=== PATIENT | male | born 1995 | race Caucasian/White ===

== ENCOUNTER 2021-01-13 19:56 | Emergency (ER) | payer SELFPAY ==
[2021-01-13 20:04] VITALS: BP 133/98; PULSE 107; RESP 18; TEMP 36; O2SAT 100
--- NOTE | 2021-01-13 20:44 | ED.GENADULT ---
HPI - General Adult General Chief complaint: Dental/Oral Stated complaint: Tooth pain, facial swelling Time Seen by Provider: 01/13/21 19:59 Source: patient Mode of arrival: ambulatory Limitations: no limitations History of Present Illness HPI narrative: Patient presents for evaluation of left upper dental pain for the last 3 days. States the pain is 8 out of 10 in severity, without descriptive quality. Pain radiates into the left side of his face. No fever, chills, nausea, vomiting, trismus, problems handling his secretions. He is not diabetic. He has taken low-dose Advil with some improvement in symptoms or after. He smokes 1/2 ppd. No additional complaints or concerns. Related Data Allergies Allergy/AdvReac Type Severity Reaction Status Date / Time No Known Allergies Allergy Verified 01/13/21 20:07 Review of Systems Review of Systems: Narrative: CONSTITUTIONAL: Denies fever, chills, or sweats. EYES: Denies visual changes, redness, or discharge. ENT: Reports left upper dental pain with radiation into the left side of his face CARDIOVASCULAR: Denies chest pain, palpitations, or edema. RESPIRATORY: Denies cough or dyspnea. GASTROINTESTINAL: Denies abdominal pain, nausea, vomiting, or diarrhea. GENITOURINARY: Denies dysuria or hematuria. SKIN: Denies rash or itching. MUSCULOSKELETAL: Denies back pain, joint pain, or myalgia. NEUROLOGIC: Denies headache, numbness, dizziness, or weakness. PSYCHIATRIC: Denies anxiety or depression. PMFSH Past Medical History Medical History Tobacco use Surgical History Surgical History No pertinent past surgical history Family History Family History (Updated 01/13/21 @ 20:47 by Umesh Haines, [employer], ) Mother No pertinent past medical history Social History Social History (Updated 01/13/21 @ 20:47 by Umesh Haines, [facility], ) Smoking status: Current every day smoker Tobacco type: cigarettes Additional smoking assessment comments: 1/2 ppd Alcohol intake: never Substance use: never Living arrangements: with family Gender identity (if verbalized by the patient): Male Spiritual care concerns: No Exam Narrative: Exam Narrative: GENERAL: Well-appearing, well-nourished, and in no acute distress. HEAD: Normocephalic, atraumatic. EYES: PERRLA and EOMI. ENT: Nares clear, no rhinorrhea or epistaxis. Multiple fractured teeth, eroded down to the gumline. Multiple teeth are necrotic. There is tenderness in the gumline superior to tooth #9-11. There is no palpable abscess. There is some left sided facial swelling. Mucous membranes moist. Oropharynx without tonsillar hypertrophy exudate or other lesions. Bilateral TMs pearly bae nonbulging NECK: Supple. No adenopathy or masses. No carotid bruits or JVD CHEST: Clear to auscultation. No respiratory distress. No wheezes rales or rhonchi HEART: Regular rate and rhythm. No murmur heard. Normal peripheral pulses. ABDOMEN: Soft, nontender, nondistended, normal active bowel sounds. EXTREMITIES: Normal range of motion. No edema. SKIN: Warm, dry, no rash. NEURO: No focal deficits. Alert and oriented x3. PSYCH: Normal mood and affect. Course Course Emergency Course: This is a 25-year-old male who presented with 3-day history of dental pain with left-sided facial swelling and pain. There is no visible or palpable abscess on exam. Will start PCN and tylenol with codeine. He may continue with NSAIDs. He should follow up with dentist this coming week and return for any worsening symptoms. Vital Signs Vital signs: Vital Signs Temperature 36.0 C L 01/13/21 20:04 Pulse Rate 107 H 01/13/21 20:04 Respiratory Rate 18 01/13/21 20:04 Blood Pressure 133/98 H 01/13/21 20:04 Pulse Oximetry 100 01/13/21 20:04 Temperature 36.0 C L 01/13/21 20:04 Pulse Rate 107 H 01/13/21 20:04 Respiratory Rate 18 01/13/21 20:04 Blood Pressure 133/98 H 04
== END 2021-01-13 21:08 | disposition home or self-care (01) ==
PROVIDERS: Emergency Provider Nurse Practitioner
DX: K02.9 Dental caries, unspecified (principal); F17.210 Nicotine dependence, cigarettes, uncomplicated
CPT/HCPCS: 99283

== ENCOUNTER 2024-06-07 10:51 | Emergency (ER) | payer SELFPAY ==
--- NOTE | ~2024-06-07 | CT_ITS ---
EXAMINATION: CT abdomen pelvis wo con DATE: 06/07/2024 12:22 INDICATION: Hematuria TECHNIQUE: Computed tomography (CT) of the abdomen and pelvis was performed without intravenous contr ast. Automated exposure control and iterative reconstruction technique were employed. The dose-length product was 218.48 mGy-cm. COMPARISON: None FINDINGS: Lung bases are clear. Heart size normal. No pericardial or pleural effusion. Small region of focal he patic steatosis along the ligamentum teres. Liver, gallbladder, spleen, pancreas and bilateral adrena l glands are normal. Kidneys and ureters are normal with no urolithiasis, hydroureteronephrosis or pe rinephric/ureteral stranding. Partially decompressed bladder is unremarkable. Bowels including the ap pendix are normal. No free intraperitoneal gas or fluid. No pathologically enlarged abdominal or pelv ic lymphadenopathy. Mild thoracic and lumbar spondylosis. IMPRESSION: 1. No urolithiasis or acute intra-abdominal/pelvic process. Reviewed, dictated and finalized at location B.
[2024-06-07 11:06] VITALS: BP 140/82; PULSE 75; RESP 18; TEMP 36.4; O2SAT 100
[2024-06-07 11:31] LABS: Basophils Absolute Auto 0.1 K/mm3 (0.0-0.1); Basophils Percent Auto 0.6 % (0.2-1.2); Eosinophils Absolute Auto 0.1 K/mm3 (0-0.3); Eosinophils Percent Auto 1.3 % (0-4.4); Hematocrit 46.3 % (42.0-52.0); Hemoglobin 16.7 g/dL (14.0-18.0); Immature Granulocyte Absolute 0.04 K/mm3 (0.00-0.031); Immature Granulocyte Percent A 0.4 % (0-0.5); Lymphocytes Absolute Auto 2.25 K/mm3 (0.9-3.2); Lymphocytes Percent Auto 22.5 % (18.3-44.2); Mean Corpuscular HGB Conc 36.1 g/dl (32-36); Mean Corpuscular Hemoglobin 31.6 pg (26-34); Mean Corpuscular Volume 87.7 fl (80-100); Mean Platelet Volume 10.9 fl (7.4-10.4); Monocytes Absolute Auto 0.5 K/mm3 (0.1-0.6); Monocytes Percent Auto 5.2 % (2.6-8.5); Platelet Count Result 225 k/mm3 (150-375); Red Blood Count 5.28 M/mm3 (4.6-6.20); Red Cell Distribution Width 11.7 % (11.5-14.5)
[2024-06-07 11:35] LABS: Add Urine Microscopic? YES; Appearance Urine Clear (Clear); Bacteria Urine None Seen /hpf; Bilirubin Urine 1+ (Negative); Blood Urine 2+ (Negative); Color Urine Dark Yellow (Yellow); Glucose Urine UA Negative (Negative); Ketones Urine 3+ mg/dL (Negative); Leukocyte Esterase Ur Trace LEU/UL (Negative); Nitrate Urine Negative (Negative); Non Pathogenic Casts 0-2; Protein Urine 2+ mg/dL (Negative); RBC Urine 21-50 /hpf (0-2); Specific Grav Ur 1.031 (1.001-1.035); Squamous Epithelial Cell Urine None Seen /hpf (Few); WBC Urine 0-5 /hpf (0-3); pH Urine 6.5 (5.0-9.0)
[2024-06-07 12:01] LABS: Alanine Aminotransferase 20 U/L (6-50); Albumin Level 4.2 g/dL (3.5-5.1); Alkaline Phosphatase 76 U/L (38-126); Anion Gap 6 mmol/L (4-12); Aspartate Amino Transferase 25 U/L (17-59); Bilirubin,Total 0.6 mg/dL (0.2-1.3); Blood Urea Nitrogen 7 mg/dL (9-20); Calcium 9.5 mg/dL (8.4-10.2); Carbon Dioxide 27 mmol/L (22-30); Chloride 98 mmol/L (98-107); Estimated CRCL calculation 111 ml/min; Estimated Glomerular Filt Rate > 60; Glucose 110 mg/dL (65-110); Potassium 2.9 mmol/L (3.4-5.0); Sodium 131 mmol/L (137-145)
--- NOTE | 2024-06-07 12:57 | ED.BACK ---
HPI - Back Pain/Injury General Chief Complaint: Back Pain/Injury Stated Complaint: KIDNEY PAIN Time Seen by Provider: 06/07/24 11:18 History of Present Illness HPI Narrative: 28-year-old male presenting to the emergency department for evaluation for right flank pain that started on Friday and has been persistent. Patient denies any pain with urination. Patient states that his current pain is a 1/10. Patient declined any medications for pain control. Patient denies any prior history of UTI or kidney stones. Related Data Allergies Allergy/AdvReac Type Severity Reaction Status Date / Time No Known Allergies Allergy Verified 06/07/24 11:18 Review of Systems Review of Systems: All systems reviewed & are unremarkable except as noted in HPI and below PMFSH Past Medical History Medical History Tobacco use Surgical History Surgical History No pertinent past surgical history Family History Family History (Updated 01/13/21 @ 20:47 by HERRERA Fernando, ) Mother No pertinent past medical history Social History Social History (Updated 01/13/21 @ 20:47 by Umesh Haines, HERRERA, ) Smoking status: Current every day smoker Tobacco type: cigarettes Additional smoking assessment comments: 1/2 ppd Alcohol intake: never Substance use: never Living arrangements: with family Gender identity (if verbalized by the patient): Male Spiritual care concerns: No Exam Narrative: APPEARANCE: Well appearing, no pain, no distress, well-nourished. HEAD: normocephalic, atraumatic. EYES: PERRLA/EOMI, conjunctivae clear. NOSE: Normal no drainage EARS:TMS clear with good light reflex. THROAT: Pharynx clear, no exudate. NECK: Supple. No adenopathy, no masses. RESPIRATORY: Airway patent, respirations nonlabored. Clear to auscultation bilaterally, no rales, rhonchi, wheezing. CARDIOVASCULAR: Regular rate and rhythm without murmurs rubs or gallops. ABDOMINAL: Soft, nontender, nondistended, normal bowel sounds MUSCULOSKELETAL: Moves all extremities. Strength/ROM intact, No edema, No calf tenderness. NEURO: Alert. Cranial nerves II through XII intact. Grossly intact SKIN: Warm, dry. Normal Color Course Course Emergency Course: Patient was positive for hematuria but had negative imaging. Patient was encouraged of close follow-up with Urology Vital Signs Vital signs: Vital Signs Temperature 97.5 F L 06/07/24 11:06 Pulse Rate 75 06/07/24 11:06 Respiratory Rate 18 06/07/24 11:06 Blood Pressure 140/82 06/07/24 11:06 Pulse Oximetry 100 06/07/24 11:06 Oxygen Delivery Room Air 06/07/24 11:06 Temperature 98.0 F 06/07/24 13:17 Pulse Rate 62 06/07/24 13:17 Respiratory Rate 16 06/07/24 13:17 Blood Pressure 134/86 06/07/24 13:17 Pulse Oximetry 62 L 06/07/24 13:17 Oxygen Delivery Room Air 06/07/24 11:06 MDM - Back Pain/Injury MDM Narrative Medical decision making narrative: 28-year-old male present to the ED for evaluation for right flank pain. Patient is afebrile no leukocytosis mid hemoglobin 16.7. No significant electrolyte abnormalities. UA does have positive blood but no white blood cells no bacteria and nitrate negative. CT scan showed no evidence of ureteral calculi. Patient declined any medications for pain control. Patient was encouraged of close follow-up with Urology for further evaluation of his hematuria. Differential Diagnosis Differential diagnosis: Likely lumbar radiculopathy, strain of lumbar region, renal colic and pyelonephritis Lab Data Attestation: I reviewed the patient's lab results. 06/07/24 11:25 06/07/24 11:25 Labs: Lab Results 06/07/24 Range/Units 11:25 WBC 10.0 (4.5-10.0) K/mm3 RBC 5.28 (4.6-6.20) M/mm3 Hgb 16.7 (14.0-18.0) g/dL Hct 46.3 (42.0-52.0) % MCV 87.7 (80-100) fl MCH 31.6 (26-34) pg MCHC 36.1 H (32-36)
[2024-06-07 13:17] VITALS: BP 134/86; PULSE 62; RESP 16; TEMP 36.7; O2SAT 62
== END 2024-06-07 13:18 | disposition home or self-care (01) ==
PROVIDERS: Emergency Provider Emergency Medicine
DX: R31.9 Hematuria, unspecified (principal); F17.210 Nicotine dependence, cigarettes, uncomplicated
CPT/HCPCS: 36415; 74176; 80053; 81001; 85025; 99284

== ENCOUNTER 2024-06-16 05:50 | Emergency (ER) | payer SELFPAY ==
--- NOTE | ~2024-06-16 | US_ITS ---
US abdomen limited INDICATION: Abdomen pain PROCEDURE: Realtime right upper abdominal ultrasound. COMPARISON: No prior studies for comparison. FINDINGS: The pancreas is normal without focal mass or pancreatic ductal dilation. Liver echotexture is normal without focal mass or intrahepatic biliary dilatation. There is normal directional flow i n the portal vein. The gallbladder is normal without stones, gallbladder wall thickening or pericholecystic fluid. Comm on bile duct measures 5 mm. No sonographic Egan's sign. IMPRESSION: 1: Normal limited abdominal ultrasound. Reviewed, dictated and finalized at location B.
--- NOTE | ~2024-06-16 | CT_ITS ---
Non-contrast CT scan of the Abdomen and Pelvis Clinical indication: Right flank pain Technique: 2.5 mm axial scans were obtained through the abdomen and pelvis without intravenous or or al contrast. Dose reduction technique was used on this scan by utilizing automated exposure control a nd iterative reconstruction technique. The dose-length product (DLP) was 213.08 mGy-cm. COMPARISON: 06/07/2024 Findings: Images through the lung bases reveal no abnormalities. There is no evidence of renal or ureteral calculi. The kidneys and the ureters are nondilated. The liver, spleen, pancreas, gallbladder, and adrenals appear normal. There is no aortic aneurysm. There is no evidence of bowel obstruction. Images through the pelvis were performed. There is no evidence of ascites or lymphadenopathy. Urinary bladder unremarkable. No pelvic mass seen. Impression: Unremarkable exam. Reviewed, dictated and finalized at [facility]. Impression: Unremarkable exam.
[2024-06-16 05:58] VITALS: BP 124/80; PULSE 68; RESP 14; TEMP 36.7; O2SAT 100
[2024-06-16 06:26] LABS: Basophils Absolute Auto 0.1 K/mm3 (0.0-0.1); Basophils Percent Auto 0.5 % (0.2-1.2); Eosinophils Absolute Auto 0.1 K/mm3 (0-0.3); Eosinophils Percent Auto 0.6 % (0-4.4); Hematocrit 41.6 % (42.0-52.0); Hemoglobin 14.6 g/dL (14.0-18.0); Immature Granulocyte Absolute 0.05 K/mm3 (0.00-0.031); Immature Granulocyte Percent A 0.4 % (0-0.5); Lymphocytes Absolute Auto 2.18 K/mm3 (0.9-3.2); Lymphocytes Percent Auto 17.2 % (18.3-44.2); Mean Corpuscular HGB Conc 35.1 g/dl (32-36); Mean Corpuscular Hemoglobin 31.9 pg (26-34); Mean Platelet Volume 10.8 fl (7.4-10.4); Monocytes Absolute Auto 0.5 K/mm3 (0.1-0.6); Neutrophils Absolute Auto 9.8 K/mm3 (1.3-6.7); Neutrophils Percent Auto 77.3 % (45.5-73.1); Platelet Count Result 266 k/mm3 (150-375); Red Blood Count 4.57 M/mm3 (4.6-6.20); Red Cell Distribution Width 12.3 % (11.5-14.5); White Blood Count 12.7 K/mm3 (4.5-10.0)
[2024-06-16 06:31] LABS: Add Urine Microscopic? YES; Appearance Urine Clear (Clear); Bacteria Urine None Seen /hpf; Bilirubin Urine Negative (Negative); Blood Urine Trace (Negative); Color Urine Yellow (Yellow); Glucose Urine UA Negative (Negative); Ketones Urine 3+ mg/dL (Negative); Leukocyte Esterase Ur Negative LEU/UL (Negative); Nitrate Urine Negative (Negative); Non Pathogenic Casts 0-2; Protein Urine Trace mg/dL (Negative); Specific Grav Ur 1.033 (1.001-1.035); Squamous Epithelial Cell Urine None Seen /hpf (Few); WBC Urine 0-5 /hpf (0-3); pH Urine 6.5 (5.0-9.0)
[2024-06-16 06:54] LABS: Alanine Aminotransferase 18 U/L (6-50); Aspartate Amino Transferase 24 U/L (17-59); Bilirubin,Total 0.4 mg/dL (0.2-1.3); Blood Urea Nitrogen 22 mg/dL (9-20); Calcium 9.7 mg/dL (8.4-10.2); Carbon Dioxide 28 mmol/L (22-30); Chloride 90 mmol/L (98-107); Estimated CRCL calculation 133 ml/min; Estimated Glomerular Filt Rate > 60; Glucose 115 mg/dL (65-110); Potassium 3.3 mmol/L (3.4-5.0)
[2024-06-16 06:55] LABS: Albumin Level 4.4 g/dL (3.5-5.1); Alkaline Phosphatase 62 U/L (38-126); Lipase 20 U/L (23-300)
[2024-06-16 06:57] LABS: Sodium 138 mmol/L (137-145)
[2024-06-16 06:58] LABS: Anion Gap 20 mmol/L (4-12)
[2024-06-16 07:01] VITALS: BP 134/80; PULSE 60; RESP 15; O2SAT 99
[2024-06-16] MEDS: KETOROLAC 15 MG/ML VIAL (*BKC) IV PUSH (07:56)
[2024-06-16] MEDS: SODIUM CHLORIDE 0.9% IV 2,000 ML 999 ML IV CONT (07:57)
[2024-06-16] MEDS: HYDROmorphone HCL INJ (*CRX) 1 MG/ML SYR IV PUSH (07:57)
[2024-06-16 08:23] LABS: Amphetamine Screen Urine Negative (Negative); Barbiturate Screen Urine Negative (Negative); Benzodiazepines Screen Urine Negative (Negative); Cannabinoid Screen Urine Positive (Negative); Cocaine Screen Urine Negative (Negative); Methadone Screen Urine Negative (Negative); Opiate Screen Urine Negative (Negative); Phencyclidine Screen Urine Negative (Negative)
[2024-06-16 09:34] VITALS: BP 117/78; PULSE 51; RESP 18; O2SAT 99
--- NOTE | 2024-06-16 10:01 | ED.GENADULT ---
HPI - General Adult General Chief complaint: Urogenital-Male Stated complaint: flank pain Time Seen by Provider: 06/16/24 06:59 History of Present Illness HPI narrative: This is a 28-year-old male presenting with a chief complaint of flank pain. Pain is a sharp pain in the right upper quadrant and right flank. It is severe in intensity. It comes and goes. It is associated with intermittent nausea and vomiting. No fevers chills chest pain difficulty breathing or urinary symptoms. No association food. Patient was seen here 1 week ago with similar presentation his only finding being hematuria. He did not follow-up the urologist. Related Data Allergies Allergy/AdvReac Type Severity Reaction Status Date / Time No Known Allergies Allergy Verified 06/16/24 06:03 [facility] Past Medical History Medical History Tobacco use Surgical History Surgical History No pertinent past surgical history Family History Family History Mother No pertinent past medical history Social History Social History Smoking status: Current every day smoker Tobacco type: cigarettes Additional smoking assessment comments: 1/2 ppd Alcohol intake: never Substance use: never Living arrangements: with family Gender identity (if verbalized by the patient): Male Spiritual care concerns: No Exam Narrative: APPEARANCE: No apparent distress. Head: atraumatic. EYES: EOMI, NOSE: Atraumatic NECK: Trachea midline RESPIRATORY: No increased rate of breathing CARDIOVASCULAR: RRR, ABDOMINAL: Right upper quadrant tenderness, rest the abdomen is soft nontender no guarding rebound, no CVA tenderness MUSCULOSKELETAl: No obvious deformities NEURO: Alert. Moving 4/4 extremities SKIN:: Warm, dry. Normal color PSYCHIATRIC: Normal affect Course Vital Signs Vital signs: Vital Signs Temperature 98.0 F 06/16/24 05:58 Pulse Rate 68 06/16/24 05:58 Respiratory Rate 14 06/16/24 05:58 Blood Pressure 124/80 06/16/24 05:58 Pulse Oximetry 100 06/16/24 05:58 Oxygen Delivery Room Air 06/16/24 05:58 Temperature 98.0 F 06/16/24 05:58 Pulse Rate 51 L 06/16/24 09:34 Respiratory Rate 18 06/16/24 09:34 Blood Pressure 117/78 06/16/24 09:34 Pulse Oximetry 99 06/16/24 09:34 Oxygen Delivery Room Air 06/16/24 05:58 Medical Decision Making [facility] Narrative Medical decision making narrative: -Course: 28-year-old male bouncing back to the ED with right flank and right upper quadrant tenderness. CT without acute findings. Right upper quadrant ultrasound added with no evidence of cholelithiasis or cholecystitis. Laboratory studies unremarkable. Urine with 6-10 red blood cells and some ketones. UDS positive for cannabinoids. At this time still unclear etiology of patient's pain. A muscle relaxer will be added to his regimen. I have encouraged him follow up the urologist as his pain certainly sounds like a kidney stone. On his last visit he had >100 red blood cells in his urine so it is possible that he had already passed the stone and now he is having residual ureteral spasm. Regardless the patient needs to follow up appropriately to ensure resolution of his symptoms or determine further workup is needed. -DDX includes but is not limited to: Cholecystitis, kidney stone, ureteral spasm, colitis, gastritis -Independent interpretation of studies: Labs and imaging reviewed -Interventions: 2 L normal saline, Toradol, Dilaudid -Shared decision making / Disposition: Discharged -RX Robaxin Vital Signs Vital Signs: Vital Signs Temperature 98.0 F 06/16/24 05:58 Pulse Rate 68 06/16/24 05:58 Respiratory Rate 14 06/16/24 05:58 Blood Pressure 124/80 06/16/24 05:58 Pulse Oximetry 100 06/16/24 05:58 Oxygen Delivery Room Air 06/16/24 05:58
== END 2024-06-16 10:25 | disposition home or self-care (01) ==
PROVIDERS: Emergency Medicine; Emergency Provider Emergency Medicine
DX: R10.11 Right upper quadrant pain (principal); F17.210 Nicotine dependence, cigarettes, uncomplicated
CPT/HCPCS: 36415; 74176; 76705; 80053; 80307; 81001; 83690; 85025; 96361; 96374; 96375; 99284; J1170; J1885; J7030